=== PATIENT | male | born 1960 | race Caucasian/White ===

== ENCOUNTER 2020-03-12 06:07 | Observation (INO) | payer OTHER, SELFPAY ==
[2020-03-12] VITALS (10 sets, daily range): BP systolic 131–152; BP diastolic 66–98; PULSE 56–90; RESP 17–20; TEMP 36.1–36.6; O2SAT 96–99; BMI 38.3
--- NOTE | ~2020-03-12 | MR_ITS ---
EXAMINATION: MR brain/brain stem wo/w con DATE: 03/12/2020 12:46 INDICATION: Dizziness TECHNIQUE: Magnetic resonance imaging (MRI) of the brain and brainstem was performed without and with 20 mL Multihance intravenous contrast. Sequences included sagittal and axial T1-weighted SE, axial d iffusion-weighted FS SE, axial T2*-weighted GRE, axial T2-weighted FLAIR, and axial T2-weighted FSE. Postcontrast axial and coronal T1-weighted SE was obtained. Apparent diffusion coefficient (ADC) maps were created. COMPARISON: Head CT dated 03/12/2020 FINDINGS: There are no areas of restricted diffusion to suggest acute infarction. No intracranial hemorrhage or abnormal intracranial mass lesion. There are scattered areas of nonspecific increased T2-weighted si gnal intensity in the cerebral white matter, predominantly involving the deep and periventricular whi te matter. There are no intraparenchymal signal abnormalities seen on the other pulse sequences. The ventricles are symmetric and normal in size. There are no abnormal extra-axial fluid collections. Segun w voids are seen in the cerebral arteries on the T2-weighted sequences consistent with their expected patency. Mild mucoperiosteal thickening in the bilateral frontal, ethmoid and maxillary sinuses. Vis ualized orbits and soft tissues are unremarkable. There are no areas of abnormal enhancement on the p ost contrast images. IMPRESSION: 1. Mild scattered nonspecific white matter T2 hyperintensity which is within normal limits for age an d likely sequela of chronic small vessel ischemic disease. No acute intracranial process. Reviewed, dictated and finalized at location A. IMPRESSION: 1. Mild scattered nonspecific white matter T2 hyperintensity which is within no rmal limits for age and likely sequela of chronic small vessel ischemic disease . No acute intracranial process.
--- NOTE | ~2020-03-12 | US_ITS ---
EXAMINATION: US carotid duplex BI DATE: 03/13/2020 10:45 INDICATION: Vertigo TECHNIQUE: Grayscale, color Doppler, and pulsed Doppler images of the cervical carotid arteries were obtained. The degree of vessel stenosis is placed in one of the following categories: normal, <50%, 5 0-69%, >=70% but less than near-occlusion, near-occlusion, or total occlusion. Note that percent sten osis relative to normal distal artery lumen diameter is indirectly measured from velocity measurement s as described by Miguel, et al. Radiology 2003; 229:340-346. COMPARISON: None. FINDINGS: RIGHT: The right common carotid artery (CCA) peak systolic velocity (PSV) is 79 cm/s. The right internal car otid artery (ICA) PSV is 68 cm/s. The right ICA end-diastolic velocity (EDV) is 28 cm/s. The right IC A/CCA PSV ratio is 0.9. Grayscale and color Doppler images yield an estimate of <50% diameter reducti on from minimal plaque in the ICA. The external carotid artery (ECA) PSV is 85 cm/s. There is antegra de flow in the right vertebral artery. LEFT: The left CCA PSV is 86 cm/s. The left ICA PSV is 42 cm/s. The left ICA EDV is 22 cm/s. The left ICA/C CA PSV ratio is 0.5. Grayscale and color Doppler images yield an estimate of <50% diameter reduction from minimal plaque in the ICA. The ECA PSV is 82 cm/s. There is antegrade flow in the left vertebral artery. IMPRESSION: 1. <50% stenosis in the right internal carotid artery. 2. <50% stenosis in the left internal carotid artery. Reviewed, dictated and finalized at location A.
--- NOTE | ~2020-03-12 | XR_ITS ---
EXAMINATION: XR chest 2V DATE: 03/12/2020 06:44 INDICATION: Cough, nausea and dizziness TECHNIQUE: frontal and lateral views of the chest were obtained. COMPARISON: None FINDINGS: Small calcified nodule at the left apex consistent with old granulomatous disease. The lungs are othe rwise clear with no focal airspace opacities, pulmonary edema, pleural effusion or pneumothorax. The cardiomediastinal silhouette is normal. Mild thoracic spondylosis. IMPRESSION: 1. No acute cardiopulmonary disease. Reviewed, dictated and finalized at location A.
--- NOTE | ~2020-03-12 | CT_ITS ---
EXAMINATION: CT brain wo con DATE: 03/12/2020 06:36 INDICATION: Dizziness TECHNIQUE: Computed tomography (CT) of the head was performed without intravenous contrast. Sagittal and coronal reconstructions were performed. The mA was adjusted according to patient size. Iterative reconstruction technique was employed. The dose-length product was 681.00 mGy-cm. COMPARISON: None FINDINGS: No acute intracranial hemorrhage, acute infarction or abnormal extra axial fluid collection. Ventricl es are normal and symmetric. No mass/mass effect. Mild mucosal thickening the bilateral ethmoid sinus es. The orbits and mastoid air cells are normal. IMPRESSION: 1. Normal brain. Reviewed, dictated and finalized at location A. IMPRESSION: 1. Normal brain.
--- NOTE | 2020-03-12 06:11 | ED.DIZZY ---
HPI - Dizziness General Chief Complaint: Dizziness <Susan Morris MD - Last Filed: 03/12/20 06:51> Stated Complaint: dizzy, very very dizzy <Susan Morris MD - Last Filed: 03/12/20 06:51> Time Seen by Provider: 03/12/20 06:10 <Susan Morris MD - Last Filed: 03/12/20 06:51> Source: patient <Susan Morris MD - Last Filed: 03/12/20 06:51> Mode of arrival: ambulatory <Susan Morris MD - Last Filed: 03/12/20 06:51> Limitations: no limitations <Susan Morris MD - Last Filed: 03/12/20 06:51> History of Present Illness HPI Narrative: Patient is a 59-year-old male with a history of coronary artery disease who presents for evaluation of dizziness. Patient reports he has been dizzy over the past 24 hours, feels very unsteady on his feet and then he is unable to walk with a straight gait. Patient denies sensation that the room is spinning. No blurry vision or vision changes. No headache pain. Patient is nauseated without any episodes of emesis. No numbness. No difficulty moving any of his extremities. No chest pain or abdominal pain. No shortness of breath, patient does report a dry cough. Patient denies fever or chills. Patient has no history of dizziness or vertigo. No recent medication changes. <Susan Morris MD - Last Filed: 03/12/20 06:51> Related Data Home Medications: Home Medications Medication Instructions Recorded Confirmed aspirin 81 mg PO DAILY 03/12/20 atorvastatin 80 mg PO DAILY 03/12/20 clopidogrel 75 mg PO DAILY 03/12/20 isosorbide mononitrate 30 mg PO DAILY 03/12/20 metoprolol tartrate 25 mg PO DAILY 03/12/20 nitroglycerin 0.4 mg SUBLINGUAL Q5-15M PRN 03/12/20 <Susan Morris MD - Last Filed: 03/12/20 06:51> Allergies/Adverse Reactions: Allergies Allergy/AdvReac Type Severity Reaction Status Date / Time No Known Allergies Allergy Verified 04/05/17 10:15 <Susan Morris MD - Last Filed: 03/12/20 06:51> Review of Systems Review of Systems: Narrative: CONSTITUTIONAL: Denies fever, chills, or sweats. EYES: Denies visual changes, redness, or discharge. ENT: Denies rhinorrhea, congestion, sore throat, or otalgia. CARDIOVASCULAR: Denies chest pain, palpitations, or edema. RESPIRATORY: Reports cough, denies shortness of breath. GASTROINTESTINAL: Denies abdominal pain, reports nausea without vomiting GENITOURINARY: Denies dysuria or hematuria. SKIN: Denies rash or itching. MUSCULOSKELETAL: Denies back pain, joint pain, or myalgia. NEUROLOGIC: Denies headache, numbness, or weakness. <Susan Morris MD - Last Filed: 03/12/20 06:51> [facility] Past Medical History Medical History: Medical History (Updated 03/12/20 @ 06:51 by Susan Morris MD) Coronary artery disease Hypertension Myocardial infarction <Susan Morris MD - Last Filed: 03/12/20 06:51> Surgical History Surgical History: Surgical History (Updated 03/12/20 @ 06:22 by Susan Morris MD) H/O left knee surgery <Susan Morris MD - Last Filed: 03/12/20 06:51> Family History Family History: Family History (Updated 08/25/17 @ 15:10 by DOCTOR UNKNOWN) Father Family history of cardiovascular disease Sibling Family history of cardiovascular disease Mother Cerebrovascular accident Other Diabetes mellitus Family history of coronary artery disease <Susan Morris MD - Last Filed: 03/12/20 06:51> Social History Social History: Social History (Updated 03/12/20 @ 06:22 by Susan Morris MD) Smoking status: Never smoker Second hand tobacco smoke exposure: No Alcohol intake: current Substance use: never Living arrangements: with family Gender identity (if verbalized by the patient): Male <Susan Morris MD - Last Filed: 03/12/20 06:51> Exam Narrative: Exam Narrative: GENERAL: Awake, alert, conversant HEAD: Normocephalic, atraumatic. EYES: PERRLA and EOMI. ENT: Nares clear
--- NOTE | 2020-03-12 06:18 | ECG_ITS ---
Measurements Intervals [place] Rate: 72 P: 6 VA: 194 QRS: -10 QRSD: 107 T: 26 QT: 391 QTc: 430 Interpretive Statements SINUS RHYTHM INFERIOR INFARCT, AGE INDETERMINATE ABNORMAL ECG Electronically Signed On 03-12-2020 7:15:18 CDT by Armando Rob D.O.
[2020-03-12 06:33] LABS: Basophils Percent Auto 0.5 % (0.2-1.2); Eosinophils Absolute Auto 0.3 K/mm3 (0-0.3); Eosinophils Percent Auto 4.4 % (0-4.4); Hematocrit 45.1 % (42.0-52.0); Hemoglobin 15.2 g/dL (14.0-18.0); Immature Granulocyte Absolute 0.02 K/mm3 (0.00-0.031); Immature Granulocyte Percent A 0.3 % (0-0.5); Lymphocytes Absolute Auto 2.01 K/mm3 (0.9-3.2); Lymphocytes Percent Auto 26.1 % (18.3-44.2); Mean Corpuscular HGB Conc 33.7 g/dl (32-36); Mean Corpuscular Hemoglobin 29.3 pg (26-34); Mean Corpuscular Volume 87.1 fl (80-100); Mean Platelet Volume 10.5 fl (7.4-10.4); Monocytes Percent Auto 12.3 % (2.6-8.5); Neutrophils Absolute Auto 4.4 K/mm3 (1.3-6.7); Neutrophils Percent Auto 56.4 % (45.5-73.1); Platelet Count Result 190 k/mm3 (150-375); Red Blood Count 5.18 M/mm3 (4.6-6.20); Red Cell Distribution Width 12.6 % (11.5-14.5); White Blood Count 7.7 K/mm3 (4.5-10.0)
[2020-03-12 06:43] LABS: Prothrombin Time 13.1 Seconds (11.1-14.7)
[2020-03-12 06:44] LABS: Partial Thromboplastin Time 25.8 SECONDS (22.3-36.8)
[2020-03-12 06:45] LABS: Blood Urea Nitrogen 17 mg/dL (9-20); Calcium 8.8 mg/dL (8.4-10.2); Carbon Dioxide 29 mmol/L (22-30); Chloride 104 mmol/L (98-107); Estimated Glomerular Filt Rate > 60; Glucose 126 mg/dL (75-110); Potassium 3.8 mmol/L (3.4-5.0); Sodium 139 mmol/L (137-145)
[2020-03-12] MEDS: ONDANSETRON INJ 4 MG/2 ML VIAL IV PUSH (06:46)
[2020-03-12] MEDS: SODIUM CHLORIDE 0.9% IV 1,000 ML 999 ML IV CONT (06:46)
[2020-03-12] MEDS: MECLIZINE HCL 25 MG TABLET PO (06:46)
[2020-03-12 06:57] LABS: Troponin I < 0.012 ng/mL (0.000-0.034)
--- NOTE | 2020-03-12 07:44 | PC.NURSE ---
informed pt again that we needed a urine sample. I left him with a urinal and told him to call us when he was done.
--- NOTE | 2020-03-12 08:05 | PC.NURSE ---
pt still hasn't given urine sample, pt asked for water, doctor said i could give pt a drink, took water and gave it to the pt's because he was trying to give a sample.
[2020-03-12 09:31] LABS: Add Urine Microscopic? NO; Appearance Urine Clear (Clear); Bilirubin Urine Negative (Negative); Blood Urine Negative (Negative); Color Urine Yellow (Yellow); Glucose Urine UA Negative (Negative); Ketones Urine Negative (Negative); Leukocyte Esterase Ur Negative LEU/UL (Negative); Mucus Urine Rare /lpf; Nitrate Urine Negative (Negative); Protein Urine Negative (Negative); RBC Urine 0-2 /hpf (0-2); Urobilinogen Urine Negative mg/dL (<2.0); WBC Urine 0-3 /hpf
--- NOTE | 2020-03-12 11:03 | ADMGEN ---
This patient, Noé Hammer, was admitted to Medical Room 247-. Patient/family oriented to hospital policies and general routines including ID bracelet, bed and alarms, visiting hours, pain management, procedures, bathroom and other care routines, personal items, smoking policy, room service/diet, and visiting hours. Valuables list has been completed. Information on how to activate the Rapid Response Team has been discussed. Patient/Family are encouraged to report perceived risks to care and to ask questions if they do not understand what they are told or what they should do.
--- NOTE | 2020-03-12 17:40 | PM.IMHP ---
H&P: HPI History of Present Illness Chief complaint: Vertigo. Narrative: Noé Hammer is a 59-year-old male with coronary artery disease and history of stents at the age of 45, hypertension, and hyperlipidemia who presented to the emergency department earlier today from home for evaluation of dizziness. Last evening he was in the basement cleaning up, and when he went to pick something off of the ground he began to feel a bit dizzy. When asked further qualify, it sounds more so like vertigo, as he tells me he was feeling off balance. This was fleeting and he went about the rest of his evening. He awoke at approximately 05:30 to use the restroom, and the instant he stood up to ambulate he felt extremely off balance and notes that he was having a difficult time walking in a straight line, listing to either side. He has also been feeling nauseated and woozy with the vertigo. It seems to be worse with changes in positions such as bending forward, standing up, or moving his head side to side. If he is still, he does not seem to experience those sensations. He also mentions having a slight nonproductive cough at baseline, which seems to be somewhat worse around this time of year however he has never been diagnosed with seasonal allergies. He has a mild frontal headache, but nothing significant. No lightheadedness. He denies acute auditory and visual changes (he has chronic tinnitus). No focal weakness or paresthesias. He denies chest pain, palpitations, and history of cardiac dysrhythmia. No cold or flu symptoms. No sick contacts. Review of Systems Review of Systems: Narrative: Twelve systems were reviewed with pertinent positives and negatives as per HPI. Except as documented, all other systems were reviewed and are negative. [facility] Past Medical History Medical History (Updated 03/12/20 @ 20:50 by Shireen Disla PA-C) Cervical disc disease Coronary artery disease (~05/2006) With history of stent x2. GERD (gastroesophageal reflux disease) Hyperlipidemia Hypertension Myocardial infarction At the age of 45. Surgical History Surgical History (Updated 03/12/20 @ 20:47 by Shireen Disla PA-C) History of arthroscopy of left knee History of cardiac catheterization Family History Family History Father Family history of cardiovascular disease Sibling Family history of cardiovascular disease Bipolar 1 disorder S/P triple vessel bypass Mother Cerebrovascular accident S/P triple vessel bypass Diabetes mellitus Social History Social History (Updated 03/12/20 @ 20:48 by Shireen Disla PA-C) Social History: The patient is lives with his in [place]. They have 5 children. He designates his , Echo, as his surrogate decision maker and he wishes to be a full code. He was in the [employer] and the [employer] for 28 years, and retired from the in 2010. He now works for the [email or web address] and is based out of [place]. He is a lifelong nonsmoker. He drinks maybe 4 alcoholic beverages a week. No drug use. Smoking status: Never smoker Second hand tobacco smoke exposure: No Alcohol intake: current Drinks per week: 4 Substance use: never Living arrangements: with family Gender identity (if verbalized by the patient): Male Spiritual care concerns: No Agree to blood products: Yes Meds Home Medications and Allergies Home Medications Medication Instructions Recorded Confirmed Type aspirin 81 mg PO DAILY 03/12/20 03/12/20 History atorvastatin 40 mg PO HS 03/12/20 03/12/20 History clopidogrel 75 mg PO DAILY 03/12/20 03/12/20 History isosorbide mononitrate 30 mg PO DAILY 03/12/20 03/12/20 History metoprolol tartrate 12.5 mg PO BID 03/12/20 03/12/20 History nitroglycerin 0.4 mg SUBLINGUAL Q5-15M PRN 03/12/20 03/12/20 History Allergies Allergy/AdvReac Type Severity Reaction Status Date / Time No Known Allergies
[2020-03-12] MEDS: DIAZEPAM 5 MG TABLET PO (18:47)
[2020-03-12] MEDS: CARBAMIDE PEROXIDE 6.5% OT SOLN 15 ML BTL 5 DROP EACH EAR (22:06)
[2020-03-12] MEDS: METOPROLOL TARTRATE 12.5 MG TABLET PO (22:07)
[2020-03-12] MEDS: ATORVASTATIN 40 MG TABLET PO (22:08)
[2020-03-13] VITALS: PULSE 67
[2020-03-13 04:00] VITALS: PULSE 62
[2020-03-13 05:33] LABS: Alanine Aminotransferase 28 U/L (4-50); Albumin Level 3.8 g/dL (3.5-5.1); Alkaline Phosphatase 100 U/L (38-126); Aspartate Amino Transferase 28 U/L (17-59); Bilirubin,Total 0.7 mg/dL (0.2-1.3)
[2020-03-13 06:00] VITALS: BP 113/74; PULSE 60; RESP 18; TEMP 36.2; O2SAT 94
[2020-03-13 08:00] VITALS: PULSE 70
[2020-03-13] MEDS: ASPIRIN 81 MG ENTERIC TABLET PO (08:15)
[2020-03-13] MEDS: CLOPIDOGREL BISULFATE 75 MG TABLET PO (08:15)
[2020-03-13 08:16] VITALS: PULSE 65
[2020-03-13] MEDS: CARBAMIDE PEROXIDE 6.5% OT SOLN 15 ML BTL 5 DROP EACH EAR (08:16)
[2020-03-13] MEDS: METOPROLOL TARTRATE 12.5 MG TABLET PO (08:16)
[2020-03-13] MEDS: ISOSORBIDE MONONITRATE 30 MG TAB.ER.24H PO (08:16)
--- NOTE | 2020-03-13 08:39 | PM.DS ---
DS: Diagnosis Admitting Diagnosis Admitting Diagnosis: Dizziness and giddiness Discharge Diagnosis (1) Vertigo: Code(s): R42 - Dizziness and giddiness Status: Acute Assessment and Plan: Most likely benign paroxysmal positional vertigo. Symptoms appeared to have nearly resolved today. Meclizine did not help much in the emergency department. Valium 5 milligrams x 1 was given last night, but patient did not move much/change positions until this morning to see if this had an any effect. He was instructed on the benefits of doing the Dee maneuver. PT was consulted; likely Vestibular therapist consultation as outpatient F/u with PCP Will do a few days of meclizine prn for dizziness and f/u with PCP (2) Hypertension: Code(s): I10 - Essential (primary) hypertension Status: Acute Assessment and Plan: Blood pressures were reviewed and they are reasonably well controlled. BP 110s this morning Continue antihypertensives at discharge (3) Hyperlipidemia: Code(s): E78.5 - Hyperlipidemia, unspecified Status: Acute Assessment and Plan: LFTs unremarkable Continue atorvastatin at discharge (4) Coronary artery disease: Onset Date: ~05/2006 Code(s): I25.10 - Atherosclerotic heart disease of [place] coronary artery without angina pectoris Status: Acute Assessment and Plan: No acute issues. Continue dual anti-platelet therapy, beta-vamshi, and statin at discharge DS: Summary Hospital Course Reason for hospitalization: Vertigo Hospital Course: Patient is a 59 yo M with CAD and history of stents at age of 55, HTN, and HLD who presented to the ER on 03/12 from home for evaluation of dizziness. The evening prior to presentation, patient was cleaning up his basement when he went to pick something off the ground and got a bit dizzy; he had a sensation of being off balance. This was resolved quickly and about 5:30 am on day of presentation he went to use the restroom and felt extremely off balance and noted he had difficult time walking in a straight line. He decided to presented to the ER for further evaluation. Meclizine was ineffective while in the ER. Please see H&P for further details. Presenting VS: Temp Pulse Resp BP Pulse Ox 97.7 F 70 17 152/90 H 96 03/12/20 06:12 03/12/20 06:12 03/12/20 06:12 03/12/20 06:12 03/12/20 06:12 Presenting Pertinent labs: CBC, chemistry, coags, troponin, UA all grossly unremarkable Micro: none Imaging: Head CT 03/12/20 06:43 IMPRESSION: 1. Normal brain. Chest X-Ray 03/12/20 06:45 IMPRESSION: 1. No acute cardiopulmonary disease Brain MRI 03/12/20 12:49 IMPRESSION: 1. Mild scattered nonspecific white matter T2 hyperintensity which is within normal limits for age and likely sequela of chronic small vessel ischemic disease. No acute intracranial process. Carotid Doppler Study 03/13/20 10:47 IMPRESSION: 1. <50% stenosis in the right internal carotid artery. 2. <50% stenosis in the left internal carotid artery. ECG: Interpretive Statements SINUS RHYTHM INFERIOR INFARCT, AGE INDETERMINATE ABNORMAL ECG Patient was admitted to the hospitalist service for further evaluation for persistent dizziness and to rule out CVA. Patient was given valium without clear determination if medication was effective as he did not change position much until about 12 hours later when he got up in the morning to use the restroom. Labs, Imaging, and ECG all unremarkable during his stay. It was felt this was likely BPPV. PT evaluated patient and was recommended he get established with PT for vestibular therapy. He was instructed about the benefits of the Dee maneuver. On day of discharge, his symptoms nearly resolved. Patient was instructed
== END 2020-03-13 11:40 | disposition home or self-care (01) ==
LOC: ANHED 10:10 → ANH2MED 11:32
PROVIDERS: Emergency Medicine; Physician Assistant; Admitting Provider Family Medicine; Emergency Provider Emergency Medicine; PCP Family Medicine; Visit Provider Physician Assistant
DX: R42 Dizziness and giddiness (principal); I25.10 Atherosclerotic heart disease of native coronary artery without angina pectoris; I25.2 Old myocardial infarction; Z95.5 Presence of coronary angioplasty implant and graft; I10 Essential (primary) hypertension; E78.5 Hyperlipidemia, unspecified; Z79.02 Long term (current) use of antithrombotics/antiplatelets; Z79.82 Long term (current) use of aspirin
CPT/HCPCS: 36415; 70450; 70553; 71046; 80048; 80076; 81003; 84484; 85025; 85610; 85730; 93005; 93880; 96361; 96374; 97112; 97162; 99285; A9270; A9577; G0378; J2405; J7030

== ENCOUNTER 2020-03-25 14:51 | Outpatient (RCR) | payer OTHER, SELFPAY ==
--- NOTE | 2020-03-25 16:39 | PTOPEVAL ---
INITIAL PHYSICAL THERAPY EVALUATION Thank you for referring Noé Hammer to [facility]. Lia Caicedobabita castillo was done - good result - handouts reviewed and given. Will follow up with phone call next week to see how he is doing. If further treatment is needed, will continue to follow, formulate plan of care and forward it to you. I agree with and certify that the following plan of care is medically necessary. Referring Physician Date Admitting Provider: Attending Provider: Lincoln Yousif PA-C Referring Provider: JOE Outpatient Evaluation Start: 03/25/20 15:10 Freq: Status: Active Protocol: Document 03/25/20 15:00 LUIS MIGUEL (Rec: 03/25/20 16:39 LUIS MIGUEL [id number]) Therapy Assessment Status Assessment Status Assessment Status Evaluation Outpatient Past Medical History Past Medical History Source of Past Medical History Patient Neurological History Hx Neurological Disorders No Significant History Cardiovascular History Hx Cardiac Catheterization Yes: 3X total. 2 stents placed . (2 cardiac caths were clean) Hx Coronary Stent Yes: 2 stents Hx Hypercholesterolemia Yes Hx Myocardial Infarction Yes: [place]'s 2005 Respiratory History Hx Respiratory Disorders No Significant History Gastrointestinal History Hx Gastrointestinal Disorders No Significant History Genitourinary History Hx Genitourinary Disorders No Significant History Musculoskeletal History Hx Arthritis Yes: Mild neck, herniated cervical disc Hx Orthopedic Surgery Yes: L knee procedure- osteochondritis dissecans Hematological History Hx Hematological Disorders No Significant History Endocrine History Hx Endocrine Disorders No Significant History HEENT History Hx Cataracts Yes Integumentary History Hx Skin Disorders No Significant History Reproductive History Hx Reproductive Disorders No Significant History Psychosocial History Hx Psychiatric Disorders No Significant History Pain History History of Any Previous or Ongoing No Significant History Instance of Pain Anesthesia History Hx Anesthesia Reactions No Significant History Evaluation Information Problem Diagnosis Dizziness and giddiness Onset 03/12/2020 Subjective Information Woke up - was all over the Query Text:As Reported By Patient/ place, very dizzy. Thought he Family was dehydrated. Activity level day before - had been bending over quite a bit. Came into ED March 6 a.m. Tests were run - all were negative - MRI, CT, carotid
--- NOTE | 2020-04-08 14:13 | PCPTNOTE ---
No return call received following PT 04/01/20 phone call. Will assume all is going well. Will d/c from PT at this time.
== END 2020-06-16 12:45 | disposition home or self-care (01) ==
LOC: ANHPT 14:51
PROVIDERS: PCP Family Medicine; Visit Provider Physician Assistant
DX: R42 Dizziness and giddiness (principal)
CPT/HCPCS: 97161

== ENCOUNTER 2020-04-22 00:35 | Outpatient (CLI) | payer OTHER, SELFPAY ==
[2020-04-22 18:12] LABS: SARS-CoV-2 RNA PCR Negative
== END 2020-04-22 00:36 | disposition home or self-care (01) ==
LOC: ANHCOVIDDT 00:35
PROVIDERS: PCP Family Medicine; Visit Provider Internal Medicine Gastroenterology
DX: Z20.828 Contact with and (suspected) exposure to other viral communicable diseases (principal); Z01.812 Encounter for preprocedural laboratory examination
CPT/HCPCS: 87635; C9803; U0003

== ENCOUNTER 2020-04-24 02:12 | Day surgery (SDC) | payer OTHER, SELFPAY ==
[2020-04-17 14:36] VITALS: BMI 36.0
[2020-04-24 06:35] VITALS: BP 130/75; PULSE 72; RESP 16; TEMP 36.4; O2SAT 95
[2020-04-24] MEDS: LACTATED RINGERS 1,000 ML 150 ML IV CONT (06:49)
--- NOTE | 2020-04-24 06:58 | WPDANESEPPF ---
Anes - Initial Pre Proc Eval Procedure: Operation Date: 04/24/20 07:30 Proposed Procedures p Screening Colonoscopy - Vahid Arboleda MD Date/Time: 04/24/20 06:58 Surgeon: Vahid Arboleda MD Pre Op Diagnosis: Neoplasm Screening Patient Data Age: 59 Gender: M Height: 6 ft 2 in Weight: 132 kg Last Vital Signs Temp 97.5 F L 04/24/20 06:35 Pulse 72 04/24/20 06:35 Resp 16 04/24/20 06:35 BP 130/75 04/24/20 06:35 Pulse Ox 95 04/24/20 06:35 Allergies Allergy/AdvReac Type Severity Reaction Status Date / Time No Known Allergies Allergy Verified 04/24/20 06:32 Home Medications Medication Instructions Recorded Confirmed Type aspirin 81 mg PO DAILY 03/12/20 04/24/20 History atorvastatin 40 mg PO HS 03/12/20 04/24/20 History clopidogrel 75 mg PO DAILY 03/12/20 04/24/20 History isosorbide mononitrate 30 mg PO DAILY 03/12/20 04/24/20 History metoprolol tartrate 12.5 mg PO BID 03/12/20 04/24/20 History nitroglycerin 0.4 mg SUBLINGUAL Q5-15M PRN 03/12/20 04/24/20 History meclizine 25 mg PO BID PRN #10 tablet 03/13/20 04/24/20 Rx Patient hx anesthesia problems: none Family hx anesthesia problems: none PMFSH Past Medical History Medical History (Updated 03/12/20 @ 20:50 by Shireen Disla PA-C) Cervical disc disease Coronary artery disease (~05/2006) With history of stent x2. GERD (gastroesophageal reflux disease) Hyperlipidemia Hypertension Myocardial infarction At the age of 45. Surgical History Surgical History (Updated 04/24/20 @ 06:58 by Jeffrey Villaseñor MD) History of arthroscopy of left knee History of cardiac catheterization Stented coronary artery Social History Social History (Updated 03/12/20 @ 20:48 by Shireen Disla PA-C) Social History: The patient is lives with his in [place]. They have 5 children. He designates his , Echo, as his surrogate decision maker and he wishes to be a full code. 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 He now works for the [employer] and is based out of [place]. He is a lifelong nonsmoker. He drinks maybe 4 alcoholic beverages a week. No drug use. Smoking status: Never smoker Second hand tobacco smoke exposure: No Alcohol intake: current Drinks per week: 4 Substance use: never Gender identity (if verbalized by the patient): Male Spiritual care concerns: No Agree to blood products: Yes Anes - Eval Final PreProcedure Day of Procedure 04/24/20 06:58 Patient weight: obese Heart: regular rate and rhythm Lungs: clear to auscultation Airway: Mallampati scale class III Neurological: alert and oriented Last oral intake: >/= 8 hours ASA classification: III Emergent: no Anesthetic plan: proceed Anesthesia type and monitoring: general GIVS and standard monitoring Informed Consent: The patient's anesthetic plan and its attendant risks and benefits were discussed with the patient/family/POA. Questions were solicited and answers provided to the satisfaction of the patient/family/POA.
--- NOTE | 2020-04-24 07:10 | PM.HPGS ---
History of Present Illness History of Present Illness Consent: Risks, benefits, and alternatives have been discussed and questions answered. Patient agrees to proceed with procedure. Chief complaint: Neoplasm Screening Narrative: Noé Hammer is a 59 year old W male Referred for screening colonoscopy. Patient's last colonoscopy was 10 years ago which was normal. He is asymptomatic. No family history of colon polyps or colon cancer. [facility] Past Medical History Medical History Cervical disc disease Coronary artery disease (~05/2006) With history of stent x2. GERD (gastroesophageal reflux disease) Hyperlipidemia Hypertension Myocardial infarction At the age of 45. Surgical History Surgical History History of arthroscopy of left knee History of cardiac catheterization Stented coronary artery Family History Family History Father Family history of cardiovascular disease Sibling Family history of cardiovascular disease Bipolar 1 disorder S/P triple vessel bypass Mother Cerebrovascular accident S/P triple vessel bypass Diabetes mellitus Social History Social History Social History: The patient is lives with his in [place]. They have 5 children. He designates his , Echo, as his surrogate decision maker and he wishes to be a full code. 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 He now works for the [employer] and is based out of [place]. He is a lifelong nonsmoker. He drinks maybe 4 alcoholic beverages a week. No drug use. Smoking status: Never smoker Second hand tobacco smoke exposure: No Alcohol intake: current Drinks per week: 4 Substance use: never Gender identity (if verbalized by the patient): Male Spiritual care concerns: No Agree to blood products: Yes Meds Home Medications and Allergies Home Medications Medication Instructions Recorded Confirmed Type aspirin 81 mg PO DAILY 03/12/20 04/24/20 History atorvastatin 40 mg PO HS 03/12/20 04/24/20 History clopidogrel 75 mg PO DAILY 03/12/20 04/24/20 History isosorbide mononitrate 30 mg PO DAILY 03/12/20 04/24/20 History metoprolol tartrate 12.5 mg PO BID 03/12/20 04/24/20 History nitroglycerin 0.4 mg SUBLINGUAL Q5-15M PRN 03/12/20 04/24/20 History meclizine 25 mg PO BID PRN #10 tablet 03/13/20 04/24/20 Rx Allergies Allergy/AdvReac Type Severity Reaction Status Date / Time No Known Allergies Allergy Verified 04/24/20 06:32 Vital Signs Vital Signs - 24 hr 04/24/20 06:35 Temperature 36.4 C L Pulse Rate 72 Respiratory Rate 16 Blood Pressure 130/75 Pulse Oximetry 95 Exam Const: Orientation/consciousness: patient oriented x3 Resp: Auscultation: clear to auscultation bilaterally Cardio: Rate: regular rate Rhythm: regular rhythm Heart sounds: no murmurs GI: GI Palp: Yes Soft to palpation, No Tenderness to palpation present (GI), Yes No hepatosplenomegaly present and No Palpable mass present Auscultation: normal bowel sounds Neuro: General: patient oriented x3 and no focal motor deficits Extrem: General: no pedal edema Assessment and Plan Additional Plan Screening colonoscopy in average risk patient
[2020-04-24 07:46] VITALS: BP 129/74; PULSE 63; RESP 21; O2SAT 96
[2020-04-24 07:55] VITALS: BP 141/90; PULSE 62; RESP 15; O2SAT 99
[2020-04-24 08:05] VITALS: BP 123/70; PULSE 67; RESP 16; O2SAT 100
== END 2020-04-24 08:20 | disposition home or self-care (01) ==
PROVIDERS: PCP Family Medicine; Visit Provider Internal Medicine Gastroenterology
PROC: 0DJD8ZZ Inspection of Lower Intestinal Tract, Via Natural or Artificial Opening Endoscopic (ICD-10-PCS; CPT 45378; principal; 2020-04-24 07:30)
DX: Z12.11 Encounter for screening for malignant neoplasm of colon (principal); K64.8 Other hemorrhoids; I25.10 Atherosclerotic heart disease of native coronary artery without angina pectoris; I10 Essential (primary) hypertension; E78.5 Hyperlipidemia, unspecified; I25.2 Old myocardial infarction; K21.9 Gastro-esophageal reflux disease without esophagitis; M50.30 Other cervical disc degeneration, unspecified cervical region; Z95.5 Presence of coronary angioplasty implant and graft; Z79.02 Long term (current) use of antithrombotics/antiplatelets; Z79.82 Long term (current) use of aspirin; E66.9 Obesity, unspecified; Z68.37 Body mass index [BMI] 37.0-37.9, adult
CPT/HCPCS: 45378; J2704; J7120

== ENCOUNTER 2020-08-08 13:57 | Emergency (ER) | payer OTHER, SELFPAY ==
[2020-08-08 14:02] VITALS: BP 145/80; PULSE 101; RESP 20; TEMP 38.8; O2SAT 98
--- NOTE | 2020-08-08 14:28 | PC.NURSE ---
Patient had a hydrocele last week.
--- NOTE | 2020-08-08 14:29 | ED.FEVER ---
HPI - Fever General Chief Complaint: Fever Stated Complaint: FEVER Source: patient Mode of arrival: ambulatory Limitations: no limitations History of Present Illness HPI Narrative: Patient is a 60-year-old male who presents complaining of cough, fever, weakness and malaise. Patient reports cough x4 to 5 days was seen at PCP yesterday and reported that he was diagnosed with reflux. Patient reports fever starting this a.m. and increased weakness throughout the day. Patient denies taking any [id number] medications for fever. Patient reports having hydrocele repair with Dr. Cook, urology last week. He reports continuous pain and swelling to groin. He denies urinary complaints. MD elicited complaint: fever, malaise and weakness Related Data Home Medications Medication Instructions Recorded Confirmed aspirin 81 mg PO DAILY 03/12/20 08/07/20 atorvastatin 40 mg PO HS 03/12/20 08/07/20 clopidogrel 75 mg PO DAILY 03/12/20 08/07/20 isosorbide mononitrate 30 mg PO DAILY 03/12/20 08/07/20 metoprolol tartrate 12.5 mg PO BID 03/12/20 08/07/20 nitroglycerin 0.4 mg SUBLINGUAL Q5-15M PRN 03/12/20 04/24/20 Allergies Allergy/AdvReac Type Severity Reaction Status Date / Time No Known Allergies Allergy Verified 08/07/20 16:28 Review of Systems Review of Systems: Narrative: CONSTITUTIONAL: Reports fever and chills, denies sweats. EYES: Denies visual changes, redness, or discharge. ENT: Denies rhinorrhea, congestion, sore throat, or otalgia. CARDIOVASCULAR: Denies chest pain, palpitations, or edema. RESPIRATORY: Reports cough, denies dyspnea. GASTROINTESTINAL: Denies abdominal pain, nausea, vomiting, or diarrhea. GENITOURINARY: Denies dysuria or hematuria. SKIN: Denies rash or itching. MUSCULOSKELETAL: Denies back pain, joint pain, or myalgia. NEUROLOGIC: Denies headache, numbness, dizziness, or weakness. PSYCHIATRIC: Denies anxiety or depression. [facility] Past Medical History Medical History Cervical disc disease Coronary artery disease (~05/2006) With history of stent x2. GERD (gastroesophageal reflux disease) Hydrocele Hyperlipidemia Hypertension Myocardial infarction At the age of 45. THOMAS (obstructive sleep apnea) Surgical History Surgical History History of arthroscopy of left knee 05/2003 History of coronary artery stent placement 2006 History of hydrocelectomy Right - 07/2020 Family History Family History Father Family history of cardiovascular disease Sibling Family history of cardiovascular disease Bipolar 1 disorder S/P triple vessel bypass Mother Cerebrovascular accident S/P triple vessel bypass Diabetes mellitus Other Hydrocele Social History Social History Social History: The patient is lives with his in [place]. They have 5 children. He designates his , Echo, as his surrogate decision maker and he wishes to be a full code. He was in the [employer] and the [employer] for 28 years, and retired from the in 2010. He now works for the [employer] and is based out of [place]. He is a lifelong nonsmoker. He drinks maybe 4 alcoholic beverages a week. No drug use. Smoking status: Never smoker Second hand tobacco smoke exposure: No Alcohol intake: current Drinks per week: 4 Substance use: never Gender identity (if verbalized by the patient): Male Spiritual care concerns: No Agree to blood products: Yes Exam Narrative: Exam Narrative: GENERAL: Well-appearing, well-nourished, and in no acute distress. HEAD: Normocephalic, atraumatic. EYES: No redness or drainage. Conjunctiva are normal. ENT: Mucous membranes pink and moist. CHEST: No respiratory distress. Clear to auscultation. HEART: Regular rate and rhythm. No murm
== END 2020-08-08 15:21 | disposition short-term general hospital (02) ==
PROVIDERS: Emergency Provider Nurse Practitioner; PCP Family Medicine
DX: R50.9 Fever, unspecified (principal); I25.10 Atherosclerotic heart disease of native coronary artery without angina pectoris; Z95.5 Presence of coronary angioplasty implant and graft; K21.9 Gastro-esophageal reflux disease without esophagitis; E78.5 Hyperlipidemia, unspecified; I10 Essential (primary) hypertension; I25.2 Old myocardial infarction; G47.33 Obstructive sleep apnea (adult) (pediatric)
CPT/HCPCS: 99212; G0463

== ENCOUNTER 2023-06-08 15:50 | Outpatient (CLI) | payer OTHER, SELFPAY ==
[2023-06-08 19:10] LABS: Alanine Aminotransferase 55 U/L (6-50); Albumin Level 4.1 g/dL (3.5-5.1); Alkaline Phosphatase 147 U/L (38-126); Anion Gap 7 mmol/L (8-16); Aspartate Amino Transferase 50 U/L (17-59); Bilirubin,Total 0.6 mg/dL (0.2-1.3); Blood Urea Nitrogen 19 mg/dL (9-20); Calcium 8.9 mg/dL (8.4-10.2); Carbon Dioxide 31 mmol/L (22-30); Chloride 101 mmol/L (98-107); Estimated Glomerular Filt Rate > 60; Glucose 125 mg/dL (65-110); Potassium 4.4 mmol/L (3.4-5.0); Sodium 139 mmol/L (137-145)
[2023-06-08 19:15] LABS: NT Pro B Type Natriuretic Pept < 20 pg/mL (19.9-100)
[2023-06-08 19:48] LABS: Hemoglobin A1C 6.1 % (<5.7)
== END 2023-06-08 15:51 | disposition home or self-care (01) ==
LOC: ANHGOSHLAB 15:51
PROVIDERS: PCP Family Medicine; Visit Provider Nurse Practitioner Family
DX: E10.65 Type 1 diabetes mellitus with hyperglycemia (principal); I25.10 Atherosclerotic heart disease of native coronary artery without angina pectoris; R60.0 Localized edema
CPT/HCPCS: 36415; 80053; 83036; 83880; 84443

== ENCOUNTER → 2023-06-08 16:19 | Outpatient (CLI) | payer OTHER, SELFPAY ==
--- NOTE | ~2023-06-08 | XR_ITS ---
EXAMINATION: XR chest 2V DATE: 06/08/2023 16:29 INDICATION: Localized edema at the bilateral lower extremities TECHNIQUE: frontal and lateral views of the chest were obtained. COMPARISON: Chest radiograph dated 03/12/2020 FINDINGS: The lungs are clear with no focal airspace opacities, pulmonary edema, pleural effusion or pneumothor ax. The cardiomediastinal silhouette is normal. Mild thoracic spondylosis. IMPRESSION: 1. No acute cardiopulmonary disease. Reviewed, dictated and finalized at location A.
== END ==
PROVIDERS: PCP Nurse Practitioner Family; Visit Provider Nurse Practitioner Family
DX: R60.0 Localized edema (principal)
CPT/HCPCS: 71046

== ENCOUNTER 2023-08-11 15:46 | Emergency (ER) | payer OTHER, SELFPAY ==
[2023-08-11 16:01] VITALS: BP 123/79; PULSE 69; RESP 16; TEMP 36.4; O2SAT 97
--- NOTE | 2023-08-11 16:30 | ED.EAR ---
HPI - Ear Problem General Chief complaint: Ear Stated complaint: Fluid in ear Time Seen by Provider: 08/11/23 16:20 Source: patient, RN notes reviewed and old records reviewed Mode of arrival: ambulatory Limitations: no limitations History of Present Illness HPI Narrative: Patient presents today complaining of a sensation of fluid behind his left ear drum x6 months with mild pain and muffling. Was seen at his PCPs office on 07/01/23, where he was diagnosed with a cerumen impaction and his ear was flushed at that time. States he does not believe his symptoms improved at all after this visit. He has not tried any other [id number] treatment prior to arrival. He currently rates his pain 12/17. Related Data Home Medications Medication Instructions Recorded Confirmed aspirin 81 mg tablet,delayed 81 mg PO DAILY 03/12/20 03/17/23 release atorvastatin 80 mg tablet 40 mg PO HS 03/12/20 03/17/23 isosorbide mononitrate 30 mg 30 mg PO DAILY 03/12/20 03/17/23 tablet,extended release 24 hr metoprolol tartrate 25 mg tablet 12.5 mg PO BID 03/12/20 03/17/23 clopidogrel 75 mg tablet 75 mg PO .QOD 09/23/22 03/17/23 colchicine (gout) 0.6 mg tablet 0.6 mg PO DAILY 12/29/22 03/17/23 furosemide 20 mg tablet mg 08/11/23 potassium chloride 10 mEq meq PO 08/11/23 tablet,extended release Allergies Allergy/AdvReac Type Severity Reaction Status Date / Time No Known Allergies Allergy Verified 08/11/23 15:58 Review of Systems Review of Systems: CONSTITUTIONAL: Denies body aches, fever, chills, or sweats. EYES: Denies visual changes, redness, or discharge. ENT: Denies rhinorrhea, congestion, sore throat + left ear pain, muffling, fluid sensation CARDIOVASCULAR: Denies chest pain, palpitations, or edema. RESPIRATORY: Denies cough or dyspnea. GASTROINTESTINAL: Denies abdominal pain, nausea, vomiting, or diarrhea. GENITOURINARY: Denies dysuria or hematuria. SKIN: Denies rash, itching, or wounds. MUSCULOSKELETAL: Denies back pain, joint pain, or myalgia. NEUROLOGIC: Denies headache, numbness, tingling, or weakness. PSYCH: Denies depression or anxiety. [facility] Past Medical History Medical History Cervical disc disease Coronary artery disease (~05/2006) With history of stent x2. Erectile dysfunction GERD (gastroesophageal reflux disease) Hydrocele Hyperlipidemia Myocardial infarction At the age of 45. THOMAS (obstructive sleep apnea) Type 2 diabetes mellitus without complications Vitamin D deficiency Surgical History Surgical History History of arthroscopy of left knee 05/2003 History of coronary artery stent placement 2006 History of hydrocelectomy (~06/2020) Right Family History Family History Father Family history of cardiovascular disease Sibling Family history of cardiovascular disease Bipolar 1 disorder S/P triple vessel bypass Mother Cerebrovascular accident S/P triple vessel bypass Diabetes mellitus Other Hydrocele Social History Social History Social History: The patient is lives with his in [place]. They have 5 children. He designates his , Echo, as his surrogate decision maker and he wishes to be a full code. 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 He now works for the [employer] and is based out of [place]. He is a lifelong nonsmoker. He drinks maybe 4 alcoholic beverages a week. No drug use. Smoking status: Never smoker Second hand tobacco smoke exposure: No Alcohol intake: current Drinks per week: 4 Substance use: never Substance use type: does not use Lack of Transportation: No Lack of Food: Never True Current Housing: I Have Housing Concerned About
== END 2023-08-11 16:38 | disposition home or self-care (01) ==
PROVIDERS: Emergency Provider Nurse Practitioner; PCP Family Medicine
DX: H60.502 Unspecified acute noninfective otitis externa, left ear (principal); I25.10 Atherosclerotic heart disease of native coronary artery without angina pectoris; E78.5 Hyperlipidemia, unspecified; I25.2 Old myocardial infarction; E11.9 Type 2 diabetes mellitus without complications; Z79.899 Other long term (current) drug therapy
CPT/HCPCS: 99213; G0463

== ENCOUNTER 2023-09-07 17:41 | Emergency (ER) | payer OTHER, SELFPAY ==
[2023-09-07 17:57] VITALS: BP 131/118; PULSE 71; RESP 16; TEMP 36.1; O2SAT 98
--- NOTE | 2023-09-07 17:59 | ED.URI ---
HPI - URI/Sore Throat General Chief Complaint: Upper Respiratory Infection Stated Complaint: Chest Congestion and Cough Time Seen by Provider: 09/07/23 18:09 Source: patient and RN notes reviewed Mode of arrival: ambulatory Limitations: no limitations History of Present Illness HPI Narrative: 63-year-old male presents with concern for sore throat, cough, chest congestion for 5 days. Reports when symptoms started he had body aches. He reports he has been taking DayQuil without relief. Denies fever, shortness of breath, chills, sweats. MD elicited complaint: cough and sore throat Related Data Home Medications Medication Instructions Recorded Confirmed atorvastatin 80 mg tablet 40 mg PO HS 03/12/20 09/07/23 isosorbide mononitrate 30 mg 30 mg PO DAILY 03/12/20 09/07/23 tablet,extended release 24 hr metoprolol tartrate 25 mg tablet 12.5 mg PO BID 03/12/20 09/07/23 clopidogrel 75 mg tablet 75 mg PO .QOD 09/23/22 09/07/23 Allergies Allergy/AdvReac Type Severity Reaction Status Date / Time No Known Allergies Allergy Verified 09/07/23 18:10 Review of Systems Review of Systems: CONSTITUTIONAL: Denies malaise, chills, sweats, or fever. EYES: Denies visual changes, redness, or discharge. ENT: Denies rhinorrhea, congestion, sinus pain, otalgia. Reports sore throat. CARDIOVASCULAR: Denies chest pain, palpitations, or edema. RESPIRATORY: Reports cough, chest congestion. Denies dyspnea. GASTROINTESTINAL: Denies abdominal pain, nausea, vomiting, diarrhea SKIN: Denies rash or itching. MUSCULOSKELETAL: Denies myalgia. NEUROLOGIC: Denies headache. All systems reviewed & are unremarkable except as noted in HPI and below [facility] Past Medical History Medical History Cervical disc disease Coronary artery disease (~05/2006) With history of stent x2. Erectile dysfunction GERD (gastroesophageal reflux disease) Hydrocele Hyperlipidemia Myocardial infarction At the age of 45. THOMAS (obstructive sleep apnea) Type 2 diabetes mellitus without complications Vitamin D deficiency Surgical History Surgical History History of arthroscopy of left knee 05/2003 History of coronary artery stent placement 2006 History of hydrocelectomy (~06/2020) Right Family History Family History Father Family history of cardiovascular disease Sibling Family history of cardiovascular disease Bipolar 1 disorder S/P triple vessel bypass Mother Cerebrovascular accident S/P triple vessel bypass Diabetes mellitus Other Hydrocele Social History Social History Social History: The patient is lives with his in [place]. They have 5 children. He designates his , Echo, as his surrogate decision maker and he wishes to be a full code. He was in the [employer] and the [employer] for 28 years, and retired from the in 2010. He now works for the [employer] and is based out of [place]. He is a lifelong nonsmoker. He drinks maybe 4 alcoholic beverages a week. No drug use. Smoking status: Never smoker Second hand tobacco smoke exposure: No Alcohol intake: current Drinks per week: 4 Substance use: never Substance use type: does not use Lack of Transportation: No Lack of Food: Never True Current Housing: I Have Housing Concerned About Future Housing: No Difficulty Paying Gas/Electric Bills: No Difficulty Paying for Meds: No Currently Unemployed: No Education: High School Diploma/GED Difficulty w/ Childcare or Family Care: No Living arrangements: with family Gender identity (if verbalized by the patient): Male Spiritual care concerns: No Agree to blood products: Yes Comments At time of signature, agree with nursing past medical, surgical, so
== END 2023-09-07 18:20 | disposition home or self-care (01) ==
PROVIDERS: Emergency Provider Nurse Practitioner; PCP Family Medicine
DX: J40 Bronchitis, not specified as acute or chronic (principal); I25.10 Atherosclerotic heart disease of native coronary artery without angina pectoris; Z95.5 Presence of coronary angioplasty implant and graft; K21.9 Gastro-esophageal reflux disease without esophagitis; E78.5 Hyperlipidemia, unspecified; I25.2 Old myocardial infarction; E11.9 Type 2 diabetes mellitus without complications; E55.9 Vitamin D deficiency, unspecified; M50.30 Other cervical disc degeneration, unspecified cervical region
CPT/HCPCS: 87081; 87880; 99213; G0463

== ENCOUNTER 2025-01-25 10:30 | Outpatient (RCR) | payer MEDICARE, OTHER, SELFPAY ==
[2024-11-06 13:35] VITALS: BMI 38.7
[2024-11-06 14:45] VITALS: BMI 38.7
[2025-01-10 13:30] VITALS: BMI 39.0
== END 2025-02-04 23:59 | disposition home or self-care (01) ==
LOC: ANHDMC 10:30
PROVIDERS: PCP Family Medicine; Visit Provider Nurse Practitioner Family
DX: E11.9 Type 2 diabetes mellitus without complications (principal); Z71.3 Dietary counseling and surveillance
CPT/HCPCS: 97802; 97803; G0108